=== PATIENT | female | born 1955 | race African-American/Black ===

== ENCOUNTER 2018-12-12 10:26 | Emergency (ER) | payer MEDICAID, OTHER ==
[~2018-12-12] VITALS: Ht 147.3 cm; Wt 64.0 kg
[2018-12-12 13:00] VITALS: BP 142/82
[2018-12-12] MEDS ORDERED: ACETAMINOPHEN 500MG TABLET PO ONE (13:15)
== END 2018-12-12 13:28 | disposition home or self-care (01) ==
LOC: ER 10:26
DX: M25.512 Pain in left shoulder (principal); I10 Essential (primary) hypertension
CPT/HCPCS: 99282